=== PATIENT | male | born 1940 | race Caucasian/White ===

== ENCOUNTER 2019-10-24 06:21 | Emergency (ER) | payer OTHER, MEDICAID ==
[~2019-10-24] VITALS: Ht 175.3 cm; Wt 86.2 kg
[2019-10-24 06:21] VITALS: BP_SYST 166
[2019-10-24 07:08] LABS: BILIRUBIN,URINE NEGATIVE (NEGATIVE); BLOOD, URINE NEGATIVE (NEGATIVE); CLARITY/URINE CLEAR (CLEAR); COLOR,URINE YELLOW (YELLOW); GLUCOSE,URINE NEGATIVE (NEGATIVE); KETONES,URINE NEGATIVE (NEGATIVE); LEUKOCYTE ESTERASE ,URINE TRACE (NEGATIVE); NITRITE, URINE NEGATIVE (NEGATIVE); PH,URINE 6.5 (5.0-8.0); PROTEIN URINE NEGATIVE (NEGATIVE); UROBILINOGEN,URINE 0.2 (0.2-1.0)
[2019-10-24 07:21] LABS: BARBITURATE, URINE NEGATIVE (NEG <=200); BENZODIAZEPINE, URINE NEGATIVE (NEG <=150); CANNABINOID, URINE NEGATIVE (NEG <=50); COCAINE, URINE NEGATIVE (NEG <=150); METHAMPHETAMINES SCREEN,URINE NEGATIVE (NEG <=500); OPIATE, URINE NEGATIVE (NEG <=100); PHENCYCLIDINE SCREEN,URINE NEGATIVE (NEG <=25); UR TRICYCLIC ANTIDEPRESSANTS NEGATIVE (NEG <=300); URINE AMPHETAMINE NEGATIVE (NEG <=500); URINE METHADONE NEGATIVE (NEG <=200); URINE OXYCODONE SCREEN NEGATIVE (NEG <=100); URINE PROPOXYPHENE SCREEN NEGATIVE (NEG <=300)
[2019-10-24 07:24] LABS: BACTERIA,URINE FEW /HPF (None Seen); RBC,URINE 0-3 /HPF (0-3)
[2019-10-24 08:39] LABS: BASOPHILS % (AUTO) 0.8 % (0.0-2.0); EOSINOPHILS # (AUTO) 0.1 K/uL (0.0-0.4); EOSINOPHILS % (AUTO) 2.4 % (0.0-4.0); HEMATOCRIT 37.4 % (36-54); HEMOGLOBIN 12.6 g/dL (14.0-18.0); LYMPHOCYTES # (AUTO) 1.5 K/uL (1.0-5.5); LYMPHOCYTES % (AUTO) 26.3 % (20.5-51.5); MEAN CORPUSCULAR HEMOGLOBIN 29 pg (27-31); MEAN CORPUSCULAR HGB CONC 34 % (32-36); MEAN CORPUSCULAR VOLUME 87 fL (79.0-98.0); MONOCYTES # (AUTO) 0.6 K/uL (0.0-1.0); MONOCYTES % (AUTO) 9.9 % (1.7-9.3); NEUTROPHILS # (AUTO) 3.5 K/uL (1.8-7.7); NEUTROPHILS % (AUTO) 60.6 % (40.0-70.0); PLATELET COUNT (AUTO) 158 K/uL (130-430); RED BLOOD CELL COUNT(AUTO) 4.29 MIL/uL (4.2-6.2); RED CELL DISTRIBUTION WIDTH 14.5 % (9.0-15.0); WHITE BLOOD COUNT (AUTO) 5.7 K/uL (4.8-10.8)
[2019-10-24 10:13] LABS: ANION GAP 6 (5-15); CALCIUM 8.7 mg/dL (8.4-11.0); CHLORIDE 102 mmol/L (98-107); CREATININE 0.87 mg/dL (0.55-1.30); GLUCOSE 102 mg/dL (70-99); POTASSIUM 3.9 mmol/L (3.5-5.1); SODIUM SERUM 136 mmol/L (136-145); UREA NITROGEN, BLOOD 17 mg/dL (8-21)
[2019-10-24 10:17] LABS: ALANINE AMINOTRANSFERASE 20 U/L (12-78); ALBUMIN 3.4 g/dL (3.4-4.8); ASPARTATE AMINOTRANSFERASE 19 U/L (10-37); CHOLESTEROL 151 mg/dL (<200); HDL CHOLESTEROL 55 mg/dL (>45); LDL CHOLESTEROL 86 mg/dL (<100); TOTAL BILIRUBIN 0.4 mg/dL (0.0-1.0); TRIGLYCERIDES 44 mg/dL (30-150)
[2019-10-24 10:21] LABS: ALCOHOL, BLOOD < 3 mg/dL (<10)
[2019-10-24 10:45] LABS: ACETAMINOPHEN < 1 ug/mL (1-30)
[2019-10-24 11:27] VITALS: BP_SYST 130
== END 2019-10-24 11:20 ==
LOC: SED 06:21
DX: R46.1 Bizarre personal appearance (principal); Z00.8 Encounter for other general examination; R79.89 Other specified abnormal findings of blood chemistry; R82.998 Other abnormal findings in urine
CPT/HCPCS: 36415; 80053; 80061; 80307; 81000; 83036; 85025; 87086; 99285; G0480; G0481; G0482

== ENCOUNTER 2020-09-17 17:08 | Emergency (ER) | payer OTHER, MEDICAID ==
[~2020-09-17] VITALS: Ht 172.7 cm; Wt 99.8 kg
[2020-09-17 17:08] VITALS: BP_SYST 194
--- NOTE | 2020-09-17 17:08 | NUR ---
Placed in room 4 . Placed on door builder, blood pressure machine and pulse oximeter. To gown for exam. Side rails up. Report given to JULIÁN Rose.
--- NOTE | 2020-09-17 17:31 | NUR ---
RIYA TO ASSUME CARE, CALM, ALERT, CONFUSED BASELINE, EMIRATI SPEAKING. SR ON MONITOR NO ECTOPY. SKIN WARM AND DRY. RESP UNLABORED.
--- NOTE | 2020-09-17 18:04 | NUR ---
REPORT CALL TO [facility] [phone] AWARE OF PT DISCHARGE/
--- NOTE | 2020-09-17 18:50 | NUR ---
RESTING EASY, RESP UNLABORED, EASILY AROUSE, NO DISTRESS.
--- NOTE | 2020-09-17 19:47 | NUR ---
Patient given written and verbal discharge instructions and verbalizes understanding. ER MD discussed with patient the results and treatment provided. Patient in stable condition. ID arm band removed. Patient educated on pain management and to follow up with PMD. Pain Scale 0/10 Opportunity for questions provided and answered. Medication side effect fact sheet provided.
[2020-09-17 19:48] VITALS: BP_SYST 147
== END 2020-09-17 19:47 | disposition home or self-care (01) ==
LOC: SED 17:08
DX: I11.0 Hypertensive heart disease with heart failure (principal); I50.9 Heart failure, unspecified; N40.0 Benign prostatic hyperplasia without lower urinary tract symptoms; Z86.2 Personal history of diseases of the blood and blood-forming organs and certain disorders involving the immune mechanism
CPT/HCPCS: 93005; 99283; 99285